=== PATIENT | male | born 1945 | race African-American/Black ===

== ENCOUNTER 2021-02-15 19:04 | Emergency (ER) | payer SELFPAY ==
[~2021-02-15] VITALS: Ht 172.7 cm; Wt 68.0 kg
[2021-02-15] MEDS ORDERED: BO1 TP (20:00)
[2021-02-15 20:15] VITALS: BP 122/65
== END 2021-02-15 20:15 | disposition home or self-care (01) ==
LOC: ER 19:04
DX: S20.319A Abrasion of unspecified front wall of thorax, initial encounter (principal); X58.XXXA Exposure to other specified factors, initial encounter; Y93.89 Activity, other specified; Y92.89 Other specified places as the place of occurrence of the external cause; Y99.8 Other external cause status
CPT/HCPCS: 99283